=== PATIENT | male | born 1985 | race Caucasian/White ===

== ENCOUNTER 2018-06-14 12:54 | Emergency (ER) | payer BC, MEDICAID ==
[~2018-06-14] VITALS: Ht 170.2 cm; Wt 95.0 kg
[2018-06-14 13:09] VITALS: BP 153/107
[2018-06-14 13:46] LABS: RAPID INFLUENZA A Negative (Negative); RAPID INFLUENZA B Negative (Negative)
[2018-06-14 13:55] LABS: BASOPHILS # (AUTO) 0.02 x10^3/uL (0-0.1); BASOPHILS % (AUTO) 0 % (0-1); EOSINOPHILS # (AUTO) 0.09 x10^3/uL (0-0.4); EOSINOPHILS % (AUTO) 1 % (1-7); LYMPHOCYTES # (AUTO) 1.65 x10^3/uL (1-3.4); LYMPHOCYTES % (AUTO) 20 % (22-44); MD NO; MEAN CORPUSCULAR HEMOGLOBIN 33.2 pg (27.5-34.5); MEAN CORPUSCULAR HGB CONC 34.4 g/dL (33.2-36.2); MEAN CORPUSCULAR VOLUME 96.3 fL (81-97); MEAN PLATELET VOLUME 7.7 fL (7.4-10.4); MONOCYTES # (AUTO) 0.46 x10^3/uL (0.2-0.8); MONOCYTES % (AUTO) 6 % (2-9); NEUTROPHILS # (AUTO) 6.18 x10^3/uL (1.8-6.8); NEUTROPHILS % (AUTO) 74 % (42-75); PLATELET COUNT 232 x10^3/uL (130-400); RED BLOOD COUNT 4.85 x10^6/uL (4.38-5.82)
[2018-06-14 14:08] LABS: ANION GAP 8 mmol/L (5-15); CALCIUM 9.1 mg/dL (8.5-10.1); CHLORIDE 106 mmol/L (98-107); CREATININE 0.82 mg/dL (0.7-1.3)
[2018-06-14 14:11] LABS: FREE T4 (FREE THYROXINE) 1.07 ng/dL (0.76-1.46); TROPONIN I < 0.015 ng/mL (0.000-0.045)
== END 2018-06-14 14:48 | disposition home or self-care (01) ==
LOC: ED 13:53
DX: R07.89 Other chest pain (principal); J02.8 Acute pharyngitis due to other specified organisms; B97.89 Other viral agents as the cause of diseases classified elsewhere
CPT/HCPCS: 36415; 71046; 80048; 84439; 84443; 84484; 85025; 87081; 87400; 87880; 93005; 99284